=== PATIENT | male | born 1960 | race Two or more races ===

== ENCOUNTER 2019-05-20 10:45 | Emergency (ER) | payer MEDICAID, OTHER ==
[~2019-05-20] VITALS: Ht 177.8 cm; Wt 81.6 kg
--- NOTE | 2019-05-20 11:17 | NUR ---
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
--- NOTE | 2019-05-20 11:21 | NUR ---
SEEN AND EXAMINED BY DAI KEARNEY NP.
[2019-05-20] MEDS ORDERED: PIPERACILLIN /TAZOBACTAM 3.375 G in IV D5W 50 ML IV ONE (11:30)
[2019-05-20] MEDS ORDERED: IV NS 0.9% 1,000 ML BAG IV ONE (11:30)
[2019-05-20] MEDS ORDERED: VANCOMYCIN 1 GM in IV D5W 250 ML IV ONE (11:30)
--- NOTE | 2019-05-20 11:35 | NUR ---
IV LINE ESTABLISHED, BLOOD DRAWN AND SENT TO LAB.
[2019-05-20 11:40] LABS: BASOPHILS # (AUTO) 0.1 /CMM (0.0-0.2); BASOPHILS % (AUTO) 0.4 % (0.0-2.0); EOSINOPHILS % (AUTO) 0.1 % (0.0-6.0); HEMATOCRIT 31 % (39-51); LYMPHOCYTES # (AUTO) 1.8 /CMM (0.8-4.8); LYMPHOCYTES % (AUTO) 14.4 % (20.0-44.0); MEAN CORPUSCULAR HGB CONC 32 g/dl (31.0-36.0); MEAN CORPUSCULAR VOLUME 87 fL (80-96); MONOCYTES # (AUTO) 1.7 /CMM (0.1-1.30); MONOCYTES % (AUTO) 13.7 % (2.0-12.0); NEUTROPHILS # (AUTO) 9.1 /CMM (1.8-8.9); NEUTROPHILS % (AUTO) 71.4 % (43.0-81.0); PLATELET COUNT (AUTO) 392 /CMM (150-450); RED BLOOD CELL COUNT(AUTO) 3.54 MIL/uL (4.5-6.0); WHITE BLOOD COUNT (AUTO) 12.7 K/uL (4.3-11.0)
--- NOTE | 2019-05-20 11:42 | NUR ---
MANAGER CODING AT BEDSIDE FOR XRAY.
--- NOTE | 2019-05-20 11:52 | NUR ---
PATIENT IS CAPITATED TO [facility]
[2019-05-20 11:57] LABS: CALCIUM, SERUM 9.1 mg/dL (8.5-10.1); CARBON DIOXIDE 28 mmol/L (21-32); CHLORIDE 101 mmol/L (98-107); CREATININE 0.9 mg/dL (0.6-1.3); GLUCOSE 126 mg/dL (74-106); POTASSIUM 3.9 mmol/L (3.5-5.1); SODIUM SERUM 137 mmol/L (136-145); UREA NITROGEN, BLOOD 8 mg/dL (7-18)
[2019-05-20 12:10] LABS: ALANINE AMINOTRANSFERASE 14 U/L (12-78); ALBUMIN 2.2 g/dL (3.4-5.0); ALKALINE PHOSPHATASE 80 U/L (46-116); ASPARTATE AMINOTRANSFERASE 18 U/L (15-37); BILIRUBIN,DIRECT 0.2 mg/dL (0.0-0.2); BILIRUBIN,TOTAL 0.5 mg/dL (0.2-1.0); TOTAL PROTEIN, SERUM 7.2 g/dL (6.4-8.2)
--- NOTE | 2019-05-20 12:14 | NUR ---
TECH AT BEDSIDE FOR US.
[2019-05-20] MEDS ORDERED: ASCO500T9 PO (12:49)
[2019-05-20] MEDS ORDERED: APIX5TAB PO (12:49)
[2019-05-20] MEDS ORDERED: PALI9TAB PO (12:49)
[2019-05-20] MEDS ORDERED: PRAV10TA40 PO (12:49)
[2019-05-20] MEDS ORDERED: CLON2TAB11 PO (12:49)
[2019-05-20] MEDS ORDERED: TERA1CAP4 PO (12:49)
[2019-05-20] MEDS ORDERED: MULT-24 PO (12:49)
[2019-05-20] MEDS ORDERED: OMEP40CA13 PO (12:49)
[2019-05-20] MEDS ORDERED: LORA-259 PO (12:49)
[2019-05-20] MEDS ORDERED: TEMA15CA PO (12:49)
[2019-05-20] MEDS ORDERED: DIVA500T4 PO (12:49)
[2019-05-20] MEDS ORDERED: LISI10TA5 PO (12:49)
[2019-05-20] MEDS ORDERED: IBUP-1955 PO (12:49)
[2019-05-20] MEDS ORDERED: DOCU-141 PO (12:49)
--- NOTE | 2019-05-20 14:29 | NUR ---
CALL FROM SAHARA, ACCEPTED BY DR PORTER AT [facility] ROOM [phone],REPORT TO [phone]
--- NOTE | 2019-05-20 14:35 | NUR ---
TRANSFER INFO: PT GOING [place] [facility] 1HOUR
[2019-05-20 15:50] VITALS: BP 133/74
--- NOTE | 2019-05-20 16:05 | NUR ---
REPORT GIVEN TO MADELINE FREED OF [facility].
== END 2019-05-20 16:15 | disposition short-term general hospital (02) ==
LOC: ER 10:45
DX: L03.115 Cellulitis of right lower limb (principal); I10 Essential (primary) hypertension; K21.9 Gastro-esophageal reflux disease without esophagitis; N40.0 Benign prostatic hyperplasia without lower urinary tract symptoms; F25.9 Schizoaffective disorder, unspecified; Z79.899 Other long term (current) drug therapy
CPT/HCPCS: 36415; 71045; 80048; 80076; 83605; 84484; 85025; 85730; 87040 ×2; 93005; 93971; 96365; 96368; 99285; J2543; J3370; J7030; J7060 ×2